=== PATIENT | female | born 1980 | race Caucasian/White ===

== ENCOUNTER 2018-06-28 17:07 | Observation (INO) | payer OTHER ==
[~2018-06-28 17:07] MED LIST: Dexamethasone 20 MG/5 ML VIAL ONE; Ketorolac Tromethamine 30 MG/ML VIAL ONE; Lidocaine 1% PF 5 ML VIAL ONE; Ondansetron PF 4 MG/2 ML Vial ONE; PROPOFOL 200 MG/20 ML VIAL ONE
[2018-06-28 18:06] LABS: #Basophils 0.1 thou/uL (0.0-0.2); #Eosinphils 0.1 thou/uL (0.0-0.7); #Lymphocytes 1.9 thou/uL (1.20-3.40); #Neutrophils 7.1 thou/uL (1.40-6.50); %Basophils 0.6 % (0.0-1.0); %Eosinophils 0.9 % (0.0-10.0); %Lymphocytes 18.3 % (21.0-51.0); %Monocytes 9.6 % (0.0-10.0); %Neutrophils 70.6 % (42.0-75.0); Hemoglobin 12.1 g/dL (12.0-16.0); Mean Corpuscular HGB CONC 33.5 g/dL (32.0-36.0); Mean Corpuscular Hemoglobin 30.4 pg (27.0-31.0); Mean Corpuscular Volume 90.8 fL (78.0-98.0); Mean Platelet Volume 5.8 fL (7.4-10.4); Platelet Count 300 thou/uL (130-400); RBC Distribution Width 11.3 % (11.5-14.5); Red Blood Cell (RBC) Count 3.96 mill/uL (4.20-5.40); White Blood Cell (WBC) Count 10.1 thou/uL (4.8-10.8)
[2018-06-28] MEDS ORDERED: Midazolam HCl 2 mg/2 ml Vial ONE (19:51)
[2018-06-28] MEDS ORDERED: Famotidine/PF 20 mg/2ml Vial ONE (20:50)
[2018-06-28] MEDS ORDERED: Meperidine HCl/PF 25 MG/ML VIAL ONE (20:50)
[2018-06-28] MEDS ORDERED: Fentanyl 100 MCG/2 ML VIAL ONE (20:50)
[2018-06-28] MEDS ORDERED: Doxycycline Hyclate 100 MG VIAL ONE (20:54)
[2018-06-28] MEDS ORDERED: Ondansetron HCl/PF 4 MG/2 ML Vial IVP PRN (21:26)
[2018-06-28] MEDS ORDERED: Promethazine HCl 25 MG/ML VIAL IM PRN (21:26)
[2018-06-28] MEDS ORDERED: Meperidine HCl/PF 25 MG/ML VIAL SLOW IVP PRN (21:26)
[2018-06-28] MEDS ORDERED: Promethazine HCl 25 MG/ML VIAL SLOW IVP PRN (21:26)
[2018-06-28] MEDS ORDERED: Bisacodyl 10 MG SUPP PR PRN (22:54)
[2018-06-28] MEDS ORDERED: diphenhydrAMINE 25 MG CAP PO PRN (22:54)
[2018-06-28] MEDS ORDERED: Ondansetron PF 4 MG/2 ML Vial IVP PRN (22:54)
[2018-06-28] MEDS ORDERED: Zolpidem Tartrate 5 MG TAB PO PRN (22:54)
[2018-06-28] MEDS ORDERED: Acetaminophen 325 MG TAB PO PRN (22:54)
[2018-06-28] MEDS: Sodium Chloride 0.9% 1,000 ML IV SCH (23:29)
[2018-06-28] MEDS ORDERED: Ketorolac Tromethamine 30 MG/ML VIAL IVP SCH (23:59)
--- NOTE | 2018-06-29 03:26 | OP ---
DATE OF PROCEDURE: 06/28/2018 PREOPERATIVE DIAGNOSIS: Retained products of conception. POSTOPERATIVE DIAGNOSIS: Status post suction dilation and curettage with intraoperative fever. TEST ENGINE EVALUATOR: None. ANESTHESIA: LMA per Dr. Davies. COMPLICATIONS: None. ESTIMATED BLOOD LOSS: Less than 50 mL. PROCEDURE PERFORMED: Cervical dilation with suction curettage for removal of retained products of conception. FINDINGS: 1. Normal-appearing vagina and cervix. Products of conception noted on removal through suction tubing. 2. Minimal bleeding after completion of suction curettage. PROCEDURE IN DETAIL: The patient was taken back to the OR with IV fluids running. When she was in the OR, she was placed in dorsal supine position and anesthesia was obtained. Once the patient was asleep, she was placed in low dorsal lithotomy position, and the abdomen and vagina were prepped and draped in normal fashion for vaginal surgery. At the start of the case, the MARKETING SERVICES VICE PRESIDENT reported a temperature of 101.3 Fahrenheit reading on her monitors. Of note, the patient had complained of feeling achy and feverish earlier today and complained of a headache prior to moving from the Day Stay area to the OR. Of note preoperatively, she received 2 g of Ancef and 100 mg IV of doxycycline. At the start of the procedure, an operative speculum was placed in the vagina. A single-tooth tenaculum was used to grasp the anterior lip of the cervix. A suction curettage was assembled with a 7-mm tip. The uterus was serially dilated to approximately 21-Martiniquais. The 7-mm suction curettage was then gently placed through the cervix into the uterus with immediate return of products were noted within the suction tubing. After no more products were noted to pass through the suction tubing, a sharp curettage was used and demonstrated uterine cry in all planes of the endometrial cavity with no return of additional tissue. The suction curettage was passed one more time with no blood or tissue noted. The single-tooth tenaculum was removed and pressure was applied with a sponge on a stick against the cervix until hemostasis was noted. Once hemostasis was noted, all instruments were removed from the vagina. The counts were correct. The patient was cleaned, dried, and taken out of lithotomy position. Her temperature was noted to be elevated to 101 degrees Fahrenheit at the end of the case. I spoke with the patient's and discussed the indication for admission with continued antibiotics and close observation with a concern for possible endometritis. The patient was transferred to the recovery room in good condition. She will be transferred to the gynecology floor later this evening and will follow up with the OB hospitalist in the morning. Job ID: [id number]
[2018-06-29 04:28] VITALS: TEMP 97.9
[2018-06-29 04:43] LABS: Hemoglobin 12.8 g/dL (12.0-16.0); Mean Corpuscular HGB CONC 34.4 g/dL (32.0-36.0); Mean Corpuscular Hemoglobin 30.7 pg (27.0-31.0); Mean Corpuscular Volume 89.1 fL (78.0-98.0); Platelet Count 302 thou/uL (130-400); RBC Distribution Width 11.4 % (11.5-14.5); Red Blood Cell (RBC) Count 4.17 mill/uL (4.20-5.40); White Blood Cell (WBC) Count 10.6 thou/uL (4.8-10.8)
[2018-06-29] MEDS: Ketorolac Tromethamine 30 MG/ML VIAL IVP SCH ×2 (05:34→11:39)
--- NOTE | 2018-06-29 05:46 | PDOC.EVN ---
Event Note - Event Note Event Note: DISCHARGE NOTE: POSTOP D&C DX: retained Products of Conception Temp noted to be 101 in OR, so held overnight for temp checks Ancef given in OR At 0900 this am will be 12 hours postop: S. doing well O. Tmax was 99.4 last pm at 2235 Tcurrent 97.9 at 0430 Abd soft and NT Asessment: Patient with retained POC now s/p D&C by Dr pena last PM (2129 or so ) with isolated temp last PM in OR...here for temp checks. Plan: continue soxy po for now consider PM dsch if temps ok (after 1600) will need to continue doxy post discharge and follow up with Dr Pena in 1 week
[2018-06-29] MEDS: Sodium Chloride 0.9% 1,000 ML IV SCH (08:39)
[2018-06-29] MEDS ORDERED: Doxycycline 100 MG CAP PO SCH (09:00)
[2018-06-29 15:59] VITALS: BP 105/82
--- NOTE | 2018-06-29 17:00 | PDOC.EVN ---
Event Note - Event Note Event Note: Pt remains afebrile. may dc home. f/u one week with Dr Penaloza.
== END 2018-06-29 16:41 | disposition home or self-care (01) ==
LOC: SDC 17:07 → 3SE 21:45
PROVIDERS: ADMIT Obstetrics & Gynecology; ATTEND Obstetrics & Gynecology
PROC: 10D17ZZ Extraction of Products of Conception, Retained, Via Natural or Artificial Opening (ICD-10-PCS; principal; 2018-06-28)
DX: O73.1 Retained portions of placenta and membranes, without hemorrhage (principal); R50.82 Postprocedural fever; F32.9 Major depressive disorder, single episode, unspecified; Z79.899 Other long term (current) drug therapy
CPT/HCPCS: 36415; 85025; 85027; 86850; 86900; 86901; 88305; 96361; 96374; 96376; G0378; J0131; J0690; J1100; J1885; J2001; J2175; J2250; J2405; J2704; J3010; S0028